=== PATIENT | male | born 1985 | race Caucasian/White ===

== ENCOUNTER 2019-11-10 08:14 | Emergency (ER) | payer SELFPAY ==
[~2019-11-10] VITALS: Ht 175.3 cm; Wt 72.6 kg
[~2019-11-10 08:14] MED LIST: HYDACE5 PO; IBUP800; IBUP800 PO
[2019-11-10] MEDS ORDERED: IBU800 MG PO (10:06)
[2019-11-10] MEDS ORDERED: Augmentin 875-1 EACH PO (10:08)
== END 2019-11-10 10:47 ==
LOC: ER 08:14
DX: S61.151A Open bite of right thumb with damage to nail, initial encounter (principal); W50.3XXA Accidental bite by another person, initial encounter; F17.200 Nicotine dependence, unspecified, uncomplicated
CPT/HCPCS: 73130; 90471; 90714; 99283-25; A9270-GY

== ENCOUNTER 2024-12-09 21:51 | Emergency (ER) | payer OTHER ==
[~2024-12-09] VITALS: Ht 175.3 cm; Wt 113.4 kg
[~2024-12-09 21:51] MED LIST changes: +Augmentin 875-1 EACH PO; +IBU800 MG PO
[2024-12-09 21:54] VITALS: BP 155/95
== END 2024-12-09 22:04 | disposition home or self-care (01) ==
LOC: ER 21:51
DX: Z04.1 Encounter for examination and observation following transport accident (principal); V49.60XA Unspecified car occupant injured in collision with unspecified motor vehicles in traffic accident, initial encounter; F17.200 Nicotine dependence, unspecified, uncomplicated; Z79.1 Long term (current) use of non-steroidal anti-inflammatories (NSAID); Z79.2 Long term (current) use of antibiotics
CPT/HCPCS: 99282